=== PATIENT | male | born 1980 | race Caucasian/White ===

== ENCOUNTER 2017-05-05 14:06 | Emergency (ER) | payer MEDICAID, OTHER ==
[2017-05-05 14:33] VITALS: BP 123/86
--- NOTE | 2017-05-05 14:45 | EDM.PDOC ---
ED HPI GENERAL MEDICAL PROBLEM - General Chief Complaint: Behavioral/Psych Stated Complaint: MENTAL HEALTH -BLOOD CLOT Time Seen by Provider: 05/05/17 14:06 Source of Information: Reports: Patient, Police History Limitations: Reports: No Limitations - History of Present Illness INITIAL COMMENTS - FREE TEXT/NARRATIVE: 36 years old w came to the ed by the police because the patien's mom was concerned hes son "hears voices". Pt was in the past diagnosed with schizophrenia but is not on any Psych meds at this time. On arrival to the ED, the Patient denied hearing voices but c/o a "Bump at his neck and r lower le". Pt is currently taking coumadine due to a blood clot at his r leg and a PE 6 months ago. His INR was not checked for a while. Pt is requesting a Psych eval to prove his mom wrong. No other acute medical issues at this time. Onset: Unknown/Unsure Onset Date: 05/04/17 Onset Time: 09:00 Duration: Intermittent Location: Reports: Neck, Lower Extremity, Right Quality: Reports: Dull (spot) Severity: Mild Improves with: Reports: None Worsens with: Reports: None Associated Symptoms: Reports: No Other Symptoms ankle & neck Pain Score (Numeric/FACES): 3 - Related Data Allergies Allergy/AdvReac Type Severity Reaction Status Date / Time aspirin Allergy Nausea and Verified 05/05/17 14:22 Vomiting codeine Allergy Hives Verified 05/05/17 14:22 Penicillins Allergy Hives Verified 05/05/17 14:22 Home Meds: Home Meds Warfarin Sodium [Jantoven] 5 mg PO DAILY 05/05/17 [History] Past Medical History Cardiovascular History: Reports: Blood Clots/VTE/DVT Respiratory History: Reports: Asthma, PE, Other (See Below) Other Respiratory History: smokes 2 pack of cigarettes a day Genitourinary History: Reports: Renal Calculus Other Musculoskeletal History: hand fracture Psychiatric History: Reports: ADHD, Addiction, Antisocial Behaviors, Anxiety, Learning Disability, Mood Swings, Schizophrenia Hematologic History: Reports: Transfusion Reaction Other Hematologic History: mother and grandmother both had a clotting disorder. he has not been Dx with one though. - Infectious Disease History Infectious Disease History: Reports: Chicken Pox - Past Surgical History GI Surgical History: Reports: Other (See Below) Social & Family History - Family History Family Medical History: Noncontributory - Tobacco Use Smoking Status *Q: Current Every Day Smoker Years of Tobacco use: 1 Packs/Tins Daily: 2 - Caffeine Use Caffeine Use: Reports: Coffee, Soda Caffeine Use Comment: drinks 8 to 12 cans of soda a day - Recreational Drug Use Recreational Drug Use: Yes Drug Use in Last 12 Months: Yes Recreational Drug Type: Reports: Cocaine, Methamphetamine Recreational Drug Use Frequency: Daily Recreational Drug Last Use: this am states smokes at least 2 x aday ED ROS GENERAL - Review of Systems Review Of Systems: See Below Constitutional: Reports: No Symptoms HEENT: Reports: No Symptoms Respiratory: Reports: No Symptoms Cardiovascular: Reports: No Symptoms Endocrine: Reports: No Symptoms GI/Abdominal: Reports: No Symptoms : Reports: No Symptoms Musculoskeletal: Reports: Muscle Pain (localized tender neck and r lower leg ) Skin: Reports: No Symptoms Neurological: Reports: No Symptoms Psychiatric: Reports: No Symptoms Hematologic/Lymphatic: Reports: No Symptoms Immunologic: Reports: No Symptoms ED EXAM, BEHAVIORAL HEALTH - Physical Exam Exam: See Below Exam Limited By: No Limitations General Appearance: Alert, WD/WN, No Apparent Distress Eye Exam: Bilateral Eye: Normal Inspection Ears: Normal External Exam Nose: Normal Inspection Throat/Mouth: Normal Inspection Head: Atraumatic Neck: Normal Inspection, Tender Lateral (minimal (left neck)) Respiratory/Chest: No Respiratory Distress Cardiovascular: Normal Peripheral Pulses, Regular Rate, Rhythm, No Edema GI/Abdominal: Normal Bowel Sounds, Soft, Non-Tender, No Organomegaly (Male) Exam: Deferred Rectal (Males) Exam: Deferred Back Exam: Normal Inspection, Full Range of Motion Extremities: Normal Inspection, Normal Range of Motion, Normal Capillary Refill , Other (minor loc tenderness r lower leg. ) Neurological: Alert, Normal Mood/Affect, CN II-XII Intact, Normal Cognition, Normal Gait, No Motor/Sensory Deficits, Oriented x 3 Psychiatric: Alert, Normal Affect, Normal Cognition, Normal Mood, Oriented Skin Exam: Warm, Dry, Intact, Normal color, No rash COURSE, BEHAVIORAL HEALTH COMP - Course Vital Signs: Last Vital Signs Temp 37.3 C 05/05/17 14:06 Pulse 99 05/05/17 14:06 Resp 15 05/05/17 14:06 BP 123/86 05/05/17 14:06 Pulse Ox 99 05/05/17 14:06 36 years old w came to the ed by the police because the patien's mom was concerned hes son "hears voices". Pt was in the past diagnosed with schizophrenia but is not on any Psych meds at this time. On arrival to the ED, the Patient denied hearing voices but c/o a "Bump at his neck and r lower le". Pt is currently taking coumadine due to a blood clot at his r leg and a PE 6 months ago. His INR was not checked for a while. Pt is requesting a Psych eval to prove his mom wrong. No other acute medical issues at this time. PE: Pt was in his usual state of health Psych eval was performed over satellite and found to be ok to go back home and to be reevaluated by a Psychiatrist Labs: UDS: THC positive, INR 1.45 Impression: subtherapeutic INR, Neck and R lower extr. discomfort. H/O shizophrenia. Reexam: Pt was doing fine Plan: d/c'd with instructions Orders, Labs, Meds: Active Orders 24 hr Category Date Time Status TSH ULTRASENSITIVE [CHEM] Stat Lab 05/05/17 14:50 Received Laboratory Tests 05/05/17 05/05/17 05/05/17 Range/Units 14:50 14:50 14:50 WBC 10.2 (4.5-12.0) X10-3/uL RBC 4.98 (4.30-5.75) x10(6)uL Hgb 16.7 H D (11.5-15.5) g/dL Hct 49.1 (30.0-51.3) % MCV 98.7 H (80-96) fL MCH 33.6 (27.7-33.6) pg MCHC 34.1 (32.2-35.4) g/dL RDW 12.4 (11.5-15.5) % Plt Count 170 (125-369) X10(3)uL MPV 7.8 (7.4-10.4) fL Neut % (Auto) 73.3 (46-82) % Lymph % (Auto) 19.2 (13-37) % Thurston % (Auto) 6.5 (4-12) % Eos % (Auto) 1 (1.0-5.0) % Baso % (Auto) 0 (0-2) % Neut # (Auto) 7.4 (1.6-8.3) # Lymph # (Auto) 1.9 (0.6-5.0) # Thurston # (Auto) 0.7 (0.0-1.3) # Eos # (Auto) 0.1 (0.0-0.8) # Baso # (Auto) 0.0 (0.0-0.2) # PT 14.5 H (8.7-11.1) INR 1.43 H (0.89-1.13) Sodium 137 (135-145) mmol/L Potassium 4.1 (3.5-5.3) mmol/L Chloride 102 D (100-110) mmol/L Carbon Dioxide 26 (23-29) mmol/L BUN 9 (5-20) mg/dL Creatinine 0.8 (0.6-1.3) mg/dL Est Cr Clr Drug Dosing 119.89 mL/min Estimated GFR (MDRD) > 60 (>60) BUN/Creatinine Ratio 11.3 (9-20) Glucose 104 (80-116) mg/dL Calcium 9.6 (8.6-10.2) mg/dL Salicylates < 4.0 L (5.0-25.0) mg/dL Urine Opiates Screen (NEGATIVE) Ur Oxycodone Screen (NEGATIVE) Ur Propoxyphene Screen (NEGATIVE) Acetaminophen < 10 L (10-30) ug/mL Ur Barbituates Screen (NEGATIVE) Ur Tricyclics Screen (NEGATIVE) Ur Phencyclidine Scrn (NEGATIVE) Ur Amphetamine Screen (NEGATIVE) Urine MDMA Screen (NEGATIVE) U Benzodiazepines Scrn (NEGATIVE) U Cocaine Metab Screen (NEGATIVE) U Marijuana (THC) Screen (NEGATIVE) Ethyl Alcohol (<0.01) % 05/05/17 05/05/17 Range/Units 14:50 15:21 WBC (4.5-12.0) X10-3/uL RBC (4.30-5.75) x10(6)uL Hgb (11.5-15.5) g/dL Hct (30.0-51.3) % MCV (80-96) fL MCH (27.7-33.6) pg MCHC (32.2-35.4) g/dL RDW (11.5-15.5) % Plt Count (125-369) X10(3)uL MPV (7.4-10.4) fL Neut % (Auto) (46-82) % Lymph % (Auto) (13-37) % Thur[place] % (Auto) (4-12) % Eos % (Auto) (1.0-5.0) % Baso % (Auto) (0-2) % Neut # (Auto) (1.6-8.3) # Lymph # (Auto) (0.6-5.0) # Thurston # (Auto) (0.0-1.3) # Eos # (Auto) (0.0-0.8) # Baso # (Auto) (0.0-0.2) # PT (8.7-11.1) INR (0.89-1.13) Sodium (135-145) mmol/L Potassium (3.5-5.3) mmol/L Chloride (100-110) mmol/L Carbon Dioxide (23-29) mmol/L BUN (5-20) mg/dL Creatinine (0.6-1.3) mg/dL Est Cr Clr Drug Dosing mL/min Estimated GFR (MDRD) (>60) BUN/Creatinine Ratio (9-20) Glucose (80-116) mg/dL Calcium (8.6-10.2) mg/dL Salicylates (5.0-25.0) mg/dL Urine Opiates Screen Negative (NEGATIVE) Ur Oxycodone Screen Negative (NEGATIVE) Ur Propoxyphene Screen Negative (NEGATIVE) Acetaminophen (10-30) ug/mL Ur Barbituates Screen Negative (NEGATIVE) Ur Tricyclics Screen Negative (NEGATIVE) Ur Phencyclidine Scrn Negative (NEGATIVE) Ur Amphetamine Screen Negative (NEGATIVE) Urine MDMA Screen Negative (NEGATIVE) U Benzodiazepines Scrn Negative (NEGATIVE) U Cocaine Metab Screen Negative (NEGATIVE) U Marijuana (THC) Screen Positive H (NEGATIVE) Ethyl Alcohol < 0.01 (<0.01) % Departure - Departure Time of Disposition: 16:30 Disposition: Home, Self-Care 01 Condition: Good Clinical Impression: Psychiatric complaint - Discharge Information Referrals: PCP,None [Primary Care Provider] - Forms: ED Department Discharge Additional Instructions: Please f/u with your psychiatrist as instructed by the Psychologist today. Please come back if your symptoms get worse. - My Orders Last 24 Hours: My Active Orders 05/05/17 14:50 TSH ULTRASENSITIVE [CHEM] Stat - Assessment/Plan Last 24 Hours: My Active Orders 05/05/17 14:50 TSH ULTRASENSITIVE [CHEM] Stat
[2017-05-05 15:18] LABS: ACETAMINOPHEN < 10 ug/mL (10-30)
== END 2017-05-05 16:56 | disposition home or self-care (01) ==
LOC: FB.ED 14:06
DX: M54.2 Cervicalgia (principal); M79.661 Pain in right lower leg; R79.1 Abnormal coagulation profile; F20.9 Schizophrenia, unspecified; J45.909 Unspecified asthma, uncomplicated; F17.210 Nicotine dependence, cigarettes, uncomplicated; Z87.442 Personal history of urinary calculi; Z86.711 Personal history of pulmonary embolism; Z79.01 Long term (current) use of anticoagulants; Z88.0 Allergy status to penicillin; Z88.5 Allergy status to narcotic agent; Z88.6 Allergy status to analgesic agent
CPT/HCPCS: 36415; 80048; 80305; 84443; 85025; 85610; 99282; 99284; G0480